=== PATIENT | female | born 1970 | race Caucasian/White ===

== ENCOUNTER 2016-12-04 00:28 | Emergency (ER) | payer MEDICAID ==
[2016-12-04] MEDS ORDERED: ONDANSETRON HCL INJ/PF 4 MG/2 ML SDV IV ONE (01:23)
[2016-12-04] MEDS ORDERED: NORMAL SALINE 1000 ML 1,000 ML IV ONE (01:23)
[2016-12-04 01:57] LABS: ABSOLUTE BASOPHILS # (AUTO) 0.1 10^3/uL (0.0-0.2); ABSOLUTE LYMPHOCYTES (AUTO) 3.7 10^3/uL (0.5-4.7); ABSOLUTE MONOCYTES (AUTO) 0.9 10^3/uL (0.1-1.4); ABSOLUTE NEUT (AUTO) 8.9 10^3/uL (1.7-8.2); BASOPHILS % (AUTO) 0.5 % (0-2); EOSINOPHILS % (AUTO) 0.2 % (0-6); HEMATOCRIT 41.7 % (36.0-47.0); HEMOGLOBIN 14.8 g/dL (12.0-15.5); HGB HCT DIFFERENCE 2.7; LYMPHOCYTES % (AUTO) 26.9 % (13-45); MEAN CORPUSCULAR HEMOGLOBIN 32.1 pg (27.0-33.4); MEAN CORPUSCULAR HGB CONC 35.5 g/dL (32.0-36.0); MEAN CORPUSCULAR VOLUME 90 fl (80-97); MONOCYTES % (AUTO) 6.7 % (3-13); RED BLOOD COUNT 4.61 10^6/uL (3.72-5.28); RED CELL DISTRIBUTION WIDTH 12.5 % (11.5-14.0); SEGMENTED NEUTROPHILS % (AUTO) 65.7 % (42-78); WHITE BLOOD COUNT 13.6 10^3/uL (4.0-10.5)
[2016-12-04] MEDS ORDERED: CLONIDINE 0.1 MG/24 HR PATCH.TDWK TD ONE (02:00)
[2016-12-04] MEDS ORDERED: GABAPENTIN 300 MG CAPSULE PO ONE (02:00)
[2016-12-04] MEDS ORDERED: ONDANSETRON ODT 4 MG TAB (6 TAB/DSPK) PO PRN (02:02)
--- NOTE | 2016-12-04 02:05 | ER Document Report ---
ED General - General Chief Complaint: POSSIBLE WITHDRAWL Stated Complaint: VOMITING Time Seen by Provider: 12/04/16 01:22 Notes: Patient is a 46-year-old female currently on chronic pain management with oxycodone and OxyContin for chronic back pain who presents with 5 days of nausea , vomiting and generalized malaise. Patient states that she feels her symptoms are related to not having her chronic pain medications which she ran out of due to lack of refills 5 days ago. Her symptoms did start after she ran out of these medications. She has had similar episodes in the past when she has run out of medication. She denies any focal abdominal pain, chest pain or shortness of breath. States she tried to speak with her primary care doctor who prescribes his medications but was unable to get an appointment. She has not noted that anything seems to improve or worsen her symptoms. She has been able to tolerate oral intake with difficulty. TRAVEL OUTSIDE OF THE [place] IN LAST 30 DAYS: No - Related Data Allergies/Adverse Reactions: No Known Allergies Allergy (Verified 07/19/12 15:06) Past Medical History - General Information source: Patient - Social History Smoking Status: Never Smoker Frequency of alcohol use: None Drug Abuse: None Lives with: Family Family History: Reviewed & Not Pertinent Patient has suicidal ideation: No Patient has homicidal ideation: No Renal/ Medical History: Denies: Hx Peritoneal Dialysis Musculoskeltal Medical History: Reports Hx Arthritis Past Surgical History: Reports: Hx Breast Surgery, Hx Gynecologic Surgery - laproscopic, Hx Hysterectomy, Hx Orthopedic Surgery - L4-L5 fusion, Hx Tonsillectomy - Immunizations Hx Diphtheria, Pertussis, Tetanus Vaccination: - unknown Review of Systems - Review of Systems Notes: Constitutional: Negative for fever. HENT: Negative for sore throat. Eyes: Negative for visual changes. Cardiovascular: Negative for chest pain. Respiratory: Negative for shortness of breath. Gastrointestinal: Positive for vomiting Genitourinary: Negative for dysuria. Musculoskeletal: Negative for back pain. Skin: Negative for rash. Neurological: Negative for headaches, weakness or numbness. 10 point ROS negative except as marked above and in HPI. Physical Exam - Vital signs Vitals: Temp Pulse Resp BP Pulse Ox 99.2 F 100 16 146/89 H 94 12/04/16 00:38 12/04/16 00:38 12/04/16 00:38 12/04/16 00:38 12/04/16 00:38 Interpretation: Normal Notes: PHYSICAL EXAMINATION: GENERAL: Well-appearing, well-nourished and in no acute distress. HEAD: Atraumatic, normocephalic. EYES: Pupils equal round and reactive to light, extraocular movements intact, sclera anicteric, conjunctiva are normal. ENT: nares patent, oropharynx clear without exudates. Moderately dry mucous membranes. NECK: Normal range of motion, supple without lymphadenopathy LUNGS: Breath sounds clear to auscultation bilaterally and equal. No wheezes rales or rhonchi. HEART: Regular rate and rhythm without murmurs ABDOMEN: Soft, nontender, normoactive bowel sounds. No guarding, no rebound. No masses appreciated. EXTREMITIES: Normal range of motion, no pitting or edema. No cyanosis. NEUROLOGICAL: No focal neurological deficits. Moves all extremities spontaneously and on command. PSYCH: Normal mood, normal affect. SKIN: Warm, Dry, normal turgor, no rashes or lesions noted. Course - Re-evaluation Re-evalutation: 12/04/16 02:01 Patient presents with acute opiate withdrawal as she is on OxyContin 80 mg twice daily as well as oxycodone 20 mg up to 4 times daily. Review [place] controlled substance database verifies that patient is correct stating that she did not miss use these medications but ran out as scheduled. The date she reports is exactly when she would have ran out based on the review of her prescribing record. She has apparently try to get a hold of her physician and was told that her appointment was moved and could not be seen until this week. Patient does appear clinically dehydrated on exam likely secondary to her persistent vomiting in setting of opiate withdrawals. She has no additional complaints at this time other than feeling dehydrated and having difficulty tolerating oral intake. She has normal vitals at time of my assessment. No focal abdominal pain. Laboratories are overall unremarkable without any evidence of significant acute kidney injury. Her symptoms improved after applying the clonidine patch, giving oral gabapentin and IV fluids. At this time will discharge with return precautions and follow-up recommendations. Verbal discharge instructions given a the bedside and opportunity for questions given. Medication warnings reviewed. Patient is in agreement with this plan and has verbalized understanding of return precautions and the need for primary care follow-up in the next 24-72 hours. - Vital Signs Vital signs: Temp Pulse Resp BP Pulse Ox 99.2 F 100 16 146/89 H 94 12/04/16 00:38 12/04/16 00:38 12/04/16 00:38 12/04/16 00:38 12/04/16 00:38 - Laboratory Result Diagrams: 12/04/16 01:45 12/04/16 01:45 Laboratory results interpreted by me: 12/04/16 12/04/16 01:45 01:45 WBC 13.6 H Absolute Neutrophils 8.9 H Potassium 3.5 L BUN 21 H Glucose 116 H Direct Bilirubin 0.5 H Lipase 354.3 H Discharge - Discharge Clinical Impression: Opiate withdrawal Vomiting Qualifiers: Vomiting type: unspecified Vomiting Intractability: non-intractable Nausea presence: with nausea Qualified Code(s): R11.2 - Nausea with vomiting, unspecified Condition: Good Disposition: HOME, SELF-CARE Additional Instructions: Please follow-up with your primary care doctor regarding your chronic prescriptions. You may take gabapentin 600 mg nightly for withdrawal until you are seen by your doctor at which time you should stop this medication. Please also remove the clonidine patch that was applied here once you are again taking your pain medications. Return for worsening symptoms including persistent vomiting, passing out, or any other symptoms that are worrisome to you. Prescriptions: Gabapentin 600 mg PO QHS #7 tablet
[2016-12-04 02:47] LABS: ALANINE AMINOTRANSFERASE 20 U/L (9-52); ALBUMIN 4.9 g/dL (3.5-5.0); ALKALINE PHOSPHATASE 70 U/L (38-126); ANION GAP 15 (5-19); ASPARTATE AMINO TRANSFERASE 15 U/L (14-36); BILIRUBIN,DIRECT 0.5 mg/dL (0.0-0.4); BLOOD UREA NITROGEN 21 mg/dL (7-20); CALCIUM 10.2 mg/dL (8.4-10.2); CARBON DIOXIDE 25 mmol/L (22-30); CHLORIDE 102 mmol/L (98-107); CREATININE RESULT 0.77 mg/dL (0.52-1.25); GLUCOSE 116 mg/dL (75-110); LIPASE 354.3 U/L (23-300); POTASSIUM 3.5 mmol/L (3.6-5.0); SODIUM 141.9 mmol/L (137-145); TOTAL PROTEIN 7.6 g/dL (6.3-8.2)
[2016-12-04 03:25] VITALS: BP 145/77
== END 2016-12-04 03:25 | disposition home or self-care (01) ==
LOC: ER 00:28
DX: F11.23 Opioid dependence with withdrawal (principal); R11.2 Nausea with vomiting, unspecified; R53.81 Other malaise; Z90.710 Acquired absence of both cervix and uterus; Z98.1 Arthrodesis status
CPT/HCPCS: 99284; 96361; 96374; 36415; 83690; 84703; 85025; 80053; J3490 ×2; J2405; J7030

== ENCOUNTER 2017-03-12 20:28 | Emergency (ER) | payer MEDICAID ==
--- NOTE | 2017-03-12 21:00 | ER Document Report ---
ED Medical Screen (RME) - General Chief Complaint: Psych Problem Stated Complaint: PSYCH EVAL Time Seen by Provider: 03/12/17 20:52 Notes: 46-year-old female, chief complaint that she is "having a mental health breakdown". She states a lot of it is stimulated because of her chronic pain that is not well controlled, she also states she is stressed out because her mom has had triple bypass, daughter at bedside states that she has been threatening to kill herself" shoot herself in the head". She is on oxycodone 20 mg tablets for chronic neck and back pain. She denies suicidal attempts in the past. Past medical history of anxiety. TRAVEL OUTSIDE OF THE [place] IN LAST 30 DAYS: No - Related Data Allergies/Adverse Reactions: No Known Allergies Allergy (Verified 07/19/12 15:06) Past Medical History Renal/ Medical History: Denies: Hx Peritoneal Dialysis Musculoskeltal Medical History: Reports Hx Arthritis Past Surgical History: Reports: Hx Breast Surgery, Hx Gynecologic Surgery - laproscopic, Hx Hysterectomy, Hx Orthopedic Surgery - L4-L5 fusion, Hx Tonsillectomy - Immunizations Hx Diphtheria, Pertussis, Tetanus Vaccination: - unknown Physical Exam - Vital signs Vitals: Temp Pulse Resp BP Pulse Ox 97.9 F 95 18 141/82 H 100 03/12/17 20:39 03/12/17 20:39 03/12/17 20:39 03/12/17 20:39 03/12/17 20:39 - Cardiovascular Rhythm: Regular. No: Tachycardia Heart sounds: Normal auscultation, S1 appreciated, S2 appreciated - Psychological Associated symptoms: Anxious - Patient borderline tearful, jittery, appears upset and anxious Course - Re-evaluation Re-evalutation: Attempted to get history, patient is somewhat agitated, daughter interjecting and daughter and patient began yelling at each other and had to be calmed. - Vital Signs Vital signs: Temp Pulse Resp BP Pulse Ox 97.9 F 95 18 141/82 H 100 03/12/17 20:39 03/12/17 20:39 03/12/17 20:39 03/12/17 20:39 03/12/17 20:39
--- NOTE | 2017-03-12 21:26 | ER Document Report ---
ED Psych Disorder / Suicide - General Chief Complaint: Psych Problem Stated Complaint: PSYCH EVAL Time Seen by Provider: 03/12/17 20:52 Notes: The patient is a 46-year-old female, past medical history chronic pain from bulging disks, presents with her daughter because the patient is having increased low back pain since running out of her oxycodone. Her primary care physician left town a few months ago. She had a first visit with a new primary care physician last week, another visit with her primary care physician next week and a pain management appointment in 1 month. Patient is requesting a refill of a muscle relaxer and lidocaine patches because these have worked in the past. Daughter says that patient is screaming at her more frequently because she is under more stress. The patient's mother is in [facility] after a CABG. the daughter said that the patient screen that she will get a gun and shoot herself because the pain is so bad. The patient denies any actual suicidal ideation said this only because of her pain. She has no thoughts of hurting herself or anyone else. No access to guns. Patient denies saddle anesthesia, change in bowel or bladder, difficulty walking, nausea, vomiting, hallucinations, abdominal pain, diarrhea or fevers. TRAVEL OUTSIDE OF THE [place] IN LAST 30 DAYS: No - Related Data Allergies/Adverse Reactions: hydroxychloroquine [From Plaquenil] Allergy (Verified 03/12/17 21:01) Hives Home Medications: Current Home Medications Oxycodone HCl 20 mg PO QID 03/12/17 [History] Sulindac 200 mg PO BID 03/12/17 [History] Past Medical History - General Information source: Patient - Social History Smoking Status: Current Every Day Smoker Chew tobacco use (# tins/day): No Frequency of alcohol use: None Drug Abuse: None Family History: Reviewed & Not Pertinent Patient has suicidal ideation: No Patient has homicidal ideation: No Renal/ Medical History: Denies: Hx Peritoneal Dialysis Musculoskeltal Medical History: Reports Hx Arthritis Past Surgical History: Reports: Hx Breast Surgery, Hx Gynecologic Surgery - laproscopic, Hx Hysterectomy, Hx Orthopedic Surgery - L4-L5 fusion, Hx Tonsillectomy - Immunizations Hx Diphtheria, Pertussis, Tetanus Vaccination: - unknown Review of Systems - Review of Systems Notes: REVIEW OF SYSTEMS: CONSTITUTIONAL: -fevers, -chills EENT: -eye pain, -difficulty swallowing, -nasal congestion CARDIOVASCULAR:-chest pain, -syncope. RESPIRATORY: -cough, -SOB GASTROINTESTINAL: -abdominal pain, -nausea, -vomiting, -diarrhea GENITOURINARY: -dysuria, -hematuria MUSCULOSKELETAL: +chronic back pain, -neck pain SKIN: -rash or skin lesions. HEMATOLOGIC: -easy bruising or bleeding. LYMPHATIC: -swollen, enlarged glands. NEUROLOGICAL: -altered mental status or loss of consciousness, -headache, - neurologic symptoms PSYCHIATRIC: -anxiety, -SI or HI ALL OTHER SYSTEMS REVIEWED AND NEGATIVE. Physical Exam - Vital signs Vitals: Temp Pulse Resp BP Pulse Ox 97.9 F 95 18 141/82 H 100 03/12/17 20:39 03/12/17 20:39 03/12/17 20:39 03/12/17 20:39 03/12/17 20:39 - Notes Notes: PHYSICAL EXAMINATION: GENERAL: Well-appearing, well-nourished and in no acute distress. HEAD: Atraumatic, normocephalic. EYES: Pupils equal round and reactive to light, extraocular movements intact, sclera anicteric, conjunctiva are normal. ENT: nares patent, oropharynx clear without exudates. Moist mucous membranes. NECK: Normal range of motion, supple without lymphadenopathy LUNGS: Breath sounds clear to auscultation bilaterally and equal. No wheezes rales or rhonchi. HEART: Regular rate and rhythm without murmurs ABDOMEN: Soft, nontender, normoactive bowel sounds. No guarding, no rebound. No masses appreciated. EXTREMITIES: Normal range of motion, no pitting or edema. No cyanosis. NEUROLOGICAL: Cranial nerves grossly intact. Normal speech, normal gait. Normal sensory and motor exams. PSYCH: Cooperative mood. Repeatedly denies SI or HI. SKIN: Warm, Dry, normal turgor, no rashes or lesions noted. Course - Re-evaluation Re-evalutation: Patient repeatedly denies any suicidal thoughts. Daughter said that when the pain worsens, she is expressing thoughts of hurting herself. Patient says that this is only because her pain becomes bad and she becomes frustrated. She is requesting a refill of Lidoderm patches and a muscle relaxer. No criteria for IVC at this time under [place] law. Offered patient to stay overnight and speak to mental health in the morning to help obtain resources for her verbal outbursts. She declines at this time, but says that she may come back tomorrow to speak to them. Patient has no red flag signs for low back pain at this time and her pain is chronic in nature. She has a primary care appointment next week and a pain management appointment in 1 month. Given very strict return precautions and she understands. She contracts for safety at this time. - Vital Signs Vital signs: Temp Pulse Resp BP Pulse Ox 97.9 F 95 18 141/82 H 100 03/12/17 20:39 03/12/17 20:39 03/12/17 20:39 03/12/17 20:39 03/12/17 20:39 - EKG Interpretation by Me EKG shows normal: Sinus rhythm, [place], Intervals, QRS Complexes, ST-T Waves Rate: Normal Discharge - Discharge Clinical Impression: Chronic pain disorder Adjustment disorder Qualifiers: Adjustment disorder type: with depressed mood Qualified Code(s): F43.21 - Adjustment disorder with depressed mood Condition: Stable Disposition: HOME, SELF-CARE Additional Instructions: Follow-up with your primary care physician for further evaluation of your chronic pain. Return to the ER if you have any thoughts of hurting herself or anyone else. DEPRESSION: Your evaluation reveals that you have mental depression. While symptoms may be vague, they often include disturbance of sleep, fatigue, loss of appetite , and general loss of interest in life. While depression may be a side effect of drugs, or a reaction to a major change in your life, many cases have no known cause. If depression is acute, and related to a major loss in your life, you can expect it to clear completely with time. If you have been depressed a long time , are prone to repeated bouts of depression or low mood, or have been thinking of suicide, get help. Depression can be treated with anti-depressant medication and counselling. Long-term depression will often take a few weeks to clear, even with appropriate medication. Follow-up care is important. SUICIDAL IDEATION: Suicidal ideation is a common medical term for thoughts about suicide, which may be as detailed as a formulated plan, without the suicidal act itself. Although most people who undergo suicidal ideation do not commit suicide, some go on to make suicide attempts. The range of suicidal ideation varies greatly from fleeting to detailed planning, role playing, and unsuccessful attempts. While thoughts about suicide are common, most people do not carry out serious actions to commit suicide. Based upon your evaluation and discussion with you, we do not believe you are currently at risk to act upon your thoughts of suicide. You have agreed to return to the Emergency Department, at any time , if you feel inclined to act upon your suicidal thoughts. FOLLOW-UP CARE: If you have been referred to a physician for follow-up care, call the physician s office for an appointment as you were instructed or within the next two days. If you experience worsening or a significant change in your symptoms, notify the physician immediately or return to the Emergency Department at any time for re-evaluation. Prescriptions: Lidocaine [Lidoderm 5% (700 mg) Transdermal Patch] 1 patch TP DAILY #10 adh..patch Methocarbamol [Robaxin 500 mg Tablet] 500 mg PO Q4H PRN #15 tablet PRN Reason: Forms: Elevated Blood Pressure
[2017-03-12] MEDS ORDERED: LIDOCAINE 5% (700 MG) TRANSDERMAL ADH..PATCH TP ONE (22:02)
[2017-03-12] MEDS ORDERED: METHOCARBAMOL 750 MG TABLET PO ONE (22:02)
[2017-03-12] MEDS ORDERED: NAPROXEN 250 MG TABLET PO ONE (22:02)
[2017-03-12 22:15] VITALS: BP 128/62
--- NOTE | 2017-03-13 07:53 | EKG REPORT ---
SEVERITY:- NORMAL ECG - SINUS RHYTHM : Confirmed by: Mario Scott MD 13-Mar-2017 07:53:12
== END 2017-03-12 22:19 | disposition home or self-care (01) ==
LOC: ER 20:28
DX: G89.29 Other chronic pain (principal); M54.5 Low back pain; F43.21 Adjustment disorder with depressed mood; F17.200 Nicotine dependence, unspecified, uncomplicated; Z98.1 Arthrodesis status
CPT/HCPCS: 93005; 99284; 93010; J3490 ×3

== ENCOUNTER → 2017-03-17 | Outpatient (CLI) | payer MEDICAID ==
--- NOTE | 2017-03-17 13:30 | WOMENS IMAGING REPORT ---
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 TECHNIQUE: Dual-Energy X-ray Absorptiometry (DEXA) of the Hip and Forearm. Spine images were not o btained due to metallic hardware. LIMITATIONS: None. FINDINGS: HIP: The bone mineral density (BMD) measured in the left hip correlates with a T-score of -3 in the femora l neck, which is osteoporosis as defined by the World Health Organization. FOREARM: The bone mineral density (BMD) measured in the left forearm correlates with a T-score of -1.7 for the 1/3 measurement which is osteopenia as defined by the World Health Organization. IMPRESSION: 1. HIP: OSTEOPOROSIS. 2. FOREARM: OSTEOPENIA. COMMENT: The World Health Organization defines low BMD as follows: T-score: Normal: Greater than -1.0 Osteopenia: Between -1.0 and -2.5 Osteoporosis: Less than -2.5 without fractures Established osteoporosis: Less than -2.5 with fractures In general, you may wish to consider: Diagnosis Treatment Follow-up DEXA Normal BMD Prevention 2-3 years Osteopenia Prevention/Therapy 1-2 years Osteoporosis Therapy Yearly TECHNICAL DOCUMENTATION: JOB ID: [id number]- All Rights Reserved
== END ==
LOC: WI 12:55
PROVIDERS: ATTEND Internal Medicine
DX: M81.0 Age-related osteoporosis without current pathological fracture (principal)
CPT/HCPCS: 77080